=== PATIENT | female | born 1985 | race Caucasian/White ===

== ENCOUNTER 2019-08-25 17:58 | Emergency (ER) | payer OTHER, SELFPAY | END 2019-08-25 18:30 | disposition home or self-care (01) | LOC: BURERS 17:58 | DX: J30.9 Allergic rhinitis, unspecified (principal) | CPT/HCPCS: 99282 ==

== ENCOUNTER 2021-01-08 12:42 | Emergency (ER) | payer OTHER, SELFPAY | END 2021-01-08 14:13 | disposition home or self-care (01) | LOC: BURERS 12:42 | DX: S93.401A Sprain of unspecified ligament of right ankle, initial encounter (principal); W10.9XXA Fall (on) (from) unspecified stairs and steps, initial encounter ==

== ENCOUNTER 2021-08-31 16:31 | Emergency (ER) | payer OTHER ==
[2021-08-31 17:45] LABS: INR-International Normal Ratio 0.9; PTT 27.9 sec (22.9-36.1); Prothrombin Time 12.6 sec (12.0-14.7)
[2021-08-31 17:50] LABS: BHCG - Serum Negative (NEGATIVE); Pregs Control Background? CLEAR/WHITE (CLR/WHITE); Pregs Control Bar Appear? YES (CONTROL BAR)
[2021-08-31 17:54] LABS: ALT (SGPT) 27 U/L (8-55); AST (SGOT) 26 U/L (5-34); Albumin 4.2 g/dL (3.5-5.0); Alkaline Phosphatase 74 U/L (40-110); Anion Gap 16 mmol/L (10-20); BUN (Urea Nitrogen) 11 mg/dL (7.0-18.7); Bilirubin, Total 0.3 mg/dL (0.2-1.2); Calc. Creatinine Clearance 0 mL/min (70-130); Calcium 8.9 mg/dL (7.8-10.44); Carbon Dioxide 22 mmol/L (22-29); Chloride 105 mmol/L (98-107); Estimated GFR 102; Globulin 3.6 g/dL (2.4-3.5); Glucose 88 mg/dL (70-105); Potassium 4.4 mmol/L (3.5-5.1); Protein, Total 7.8 g/dL (6.0-8.3); Sodium 139 mmol/L (136-145)
[2021-08-31 17:55] LABS: Hemoglobin 15.2 g/dL (12.0-16.0); Lymphocytes 23 % (21-51); MDiff Complete? YES; Mean Corpuscular HGB CONC 33.2 g/dL (32.0-36.0); Mean Corpuscular Hemoglobin 29.9 pg (27.0-31.0); Mean Corpuscular Volume 90.1 fL (78.0-98.0); Mean Platelet Volume 7.9 fL (7.4-10.4); Monocytes 5 % (0-10); Neutrophil 72 % (42-75); Platelet Count 388 thou/uL (130-400); RBC Distribution Width 11.2 % (11.5-14.5); Red Blood Cell (RBC) Count 5.08 mill/uL (4.20-5.40); White Blood Cell (WBC) Count 11.7 thou/uL (4.8-10.8)
[2021-08-31] MEDS ORDERED: Aspirin Chewable 81 MG TAB ONE (18:26)
[2021-08-31] MEDS ORDERED: Ondansetron PF 4 MG/2 ML Vial ONE (18:26)
[2021-08-31] MEDS ORDERED: Meclizine HCl 25 MG TAB ONE (18:26)
== END 2021-08-31 20:54 | disposition short-term general hospital (02) ==
LOC: BURERS 16:31
DX: R42 Dizziness and giddiness (principal); R20.2 Paresthesia of skin
CPT/HCPCS: 36415; 70450; 80053; 84484; 84703; 85025; 85610; 85730; 93005; 96361; 96374; J2405

== ENCOUNTER 2023-01-25 21:07 | Emergency (ER) | payer BC ==
[2023-01-25] MEDS ORDERED: Ondansetron ODT 4 MG TAB ONE (21:21)
== END 2023-01-25 22:20 | disposition home or self-care (01) ==
LOC: BURERS 21:07
DX: S09.90XA Unspecified injury of head, initial encounter (principal); W18.30XA Fall on same level, unspecified, initial encounter
CPT/HCPCS: 70450; 72125; Q0162

== ENCOUNTER 2023-03-20 14:26 | Emergency (ER) | payer BC ==
[2023-03-20] MEDS ORDERED: Bupivacaine 0.5% 10 ML VIAL ONE (14:50)
[2023-03-20] MEDS ORDERED: Clindamycin 150 MG CAP ONE (14:59)
== END 2023-03-20 15:03 | disposition home or self-care (01) ==
LOC: BURERS 14:26
DX: K04.7 Periapical abscess without sinus (principal)
CPT/HCPCS: 99282; J3490

== ENCOUNTER 2024-12-09 11:03 | Emergency (ER) | payer BC ==
[2024-12-09] MEDS ORDERED: HYDROcodone/Acetaminophen 5/325 mg Tablet ONE (12:35)
== END 2024-12-09 13:31 | disposition home or self-care (01) ==
LOC: BURERS 11:03
DX: S06.0XAA Concussion with loss of consciousness status unknown, initial encounter (principal); R29.700 NIHSS score 0; X58.XXXA Exposure to other specified factors, initial encounter
CPT/HCPCS: 70450; 72125